=== PATIENT | female | born 1995 | race Caucasian/White ===

== ENCOUNTER → 2016-07-11 | Outpatient (CLI) | payer OTHER ==
--- NOTE | 2016-07-11 14:22 | REP ---
Clinical: Anatomical evaluation. Comparison: None. Findings: Examination demonstrates a single live intrauterine in cephalic presentation. motion is identified by technologist. Placenta is noted posteriorly and grade zero without evidence for placenta previa or abruption. Amniotic fluid volume is normal. Cervix measures a 3.5 cm in length and appears closed. No evidence for nuchal cord. Gestational age by LMP 24 weeks 3 days with GEENA is 10/28/2016 . Gestational age by current measurements 24 weeks 2 days with GEENA 10/29/2016 . FHR equals 157 beats per minute. Estimated weight 757 grams ( 61st percentile). Anatomical assessment demonstrates normal structures including cranium, choroid plexus, cavum, cerebellum/posterior fossa, facial features, lungs, four-chamber heart, diaphragm, stomach, cord insertion/three-vessel cord, kidneys/bladder, spine, and extremities. Impression: Single live intrauterine in cephalic presentation demonstrating appropriate interval growth. With the exception of the cardiac ventricular outflow tracts, anatomical assessment is complete and normal. Signed by Alex Rodney MD 07/11/2016 02:14 P
[2016-07-11 19:41] LABS: BASO % 0.3 % (0.0-1.0); EOS % 0.7 % (0.0-3.0); LARGE UNSTAINED CELL # 0.2 K/mm3 (0.0-0.4); LARGE UNSTAINED CELL % 2.3 % (0.0-4.0); MEAN CORPUSCULAR HEMOGLOBIN 30.9 pg (27.0-33.0); MEAN CORPUSCULAR HGB CONC 32.9 g/dl (32.0-36.5); MONO # 0.5 K/mm3 (0.0-0.8); MONO % 6.7 % (0.0-5.0); NEUTROPHILS # 5.4 K/mm3 (1.8-7.7); PLATELET COUNT, AUTOMATED 300 k/mm3 (150-450); RED CELL DISTRIBUTION WIDTH 12.9 % (11.5-14.5); WHITE BLOOD COUNT 7.1 K/mm3 (4.0-10.0)
[2016-07-14 10:57] LABS: CONTROL LINE INT CTR LINE PRESENT; HIV SCRN NEGATIVE (NEGATIVE); HIV SCRN1 NEGATIVE (NEGATIVE)
== END ==
LOC: M SMT 12:50
PROVIDERS: ATTEND Obstetrics & Gynecology
DX: Z36 Encounter for antenatal screening of mother (principal); Z3A.24 24 weeks gestation of pregnancy

== ENCOUNTER → 2016-10-08 | Outpatient (REF) | payer OTHER | LOC: M LAB REF 13:13 | PROVIDERS: ATTEND Advanced Practice Midwife | DX: Z34.83 Encounter for supervision of other normal pregnancy, third trimester (principal) ==

== ENCOUNTER 2016-10-26 10:52 | Inpatient (IN) | payer OTHER ==
[2016-10-26] VITALS (28 sets, daily range): BP systolic 103–177; BP diastolic 57–89
[~2016-10-26] VITALS: Ht 165.1 cm; Wt 70.0 kg
[2016-10-26] MEDS ORDERED: PRENTAB9 PO (11:05)
[2016-10-26] MEDS ORDERED: LACTATED RINGER'S 1000 ML IV STA (12:45)
[2016-10-26] MEDS ORDERED: LR 1,000 ML IV SCH (12:45)
[2016-10-26 13:27] LABS: MEAN CORPUSCULAR HEMOGLOBIN 27.6 pg (27.0-33.0); MEAN CORPUSCULAR HGB CONC 32.5 g/dl (32.0-36.5); RED CELL DISTRIBUTION WIDTH 14.7 % (11.5-14.5); WHITE BLOOD COUNT 8.2 K/mm3 (4.0-10.0)
[2016-10-26] MEDS ORDERED: OXYTOCIN DRIP 30 UNITS in APPROPRIATE DILUENT 1 EA IV SCH ×2 (13:45→21:08)
[2016-10-26] MEDS ORDERED: FENTANYL 2MCG/ML ROPIVACAINE 0.2% IN 0.9% NACL 200ML IVBAG As Ordered ONE (17:31)
[2016-10-26] MEDS ORDERED: REFRIGERATOR IV KEYS XX PRN (19:00)
[2016-10-26] MEDS ORDERED: diphenhydrAMINE INJ 50MG/ML VIAL (J1200) IV PRN (19:00)
[2016-10-26] MEDS ORDERED: EPIDURAL/PCA KEYS XX PRN (19:00)
[2016-10-26] MEDS ORDERED: LACTATED RINGER'S 1000 ML IV PRN (19:00)
[2016-10-26] MEDS ORDERED: ONDANSETRON 4MG/2ML VIAL (J2405) IV PRN ×2 (19:00→21:15)
[2016-10-26] MEDS ORDERED: EPIDURAL COMMENT XX SCH (19:00)
[2016-10-26] MEDS ORDERED: ePHEDrine SULFATE 25 MG/5 ML(5MG/ML) SYRINGE IV PRN (19:00)
[2016-10-26] MEDS ORDERED: FENTANYL/ROPIVACAINE/NACL BAG 200 ML EPIDURAL SCH (19:00)
[2016-10-26] MEDS ORDERED: NALOXONE INJ 0.4 MG/1 ML VIAL (J2310) IV PRN (19:00)
[2016-10-26] MEDS: LR 1,000 ML IV SCH (21:08)
[2016-10-26] MEDS ORDERED: RHOGAM 300 MCG (1500 IU) INJ (J2790) IM SCH (21:15)
[2016-10-26] MEDS ORDERED: ACETAMINOPHEN 500 MG TAB PO PRN (21:15)
[2016-10-26] MEDS ORDERED: MEASLES,MUMPS,RUBELLA VACCINE INJ (MMR-II) (90707) SC SCH (21:15)
[2016-10-26] MEDS ORDERED: PROMETHAZINE 25 MG TAB PO PRN (21:15)
[2016-10-26] MEDS ORDERED: DIBUCAINE 1% OINTMENT 30GM TOP PRN (21:15)
[2016-10-26] MEDS ORDERED: DOCUSATE SODIUM 100 MG CAP PO PRN (21:15)
[2016-10-27] MEDS: IBUPROFEN 800 MG TAB PO PRN ×2 (03:34→16:04)
[2016-10-27] MEDS: LR 1,000 ML IV SCH ×3 (05:08→19:31)
[2016-10-27 06:03] VITALS: BP 114/60
[2016-10-27] MEDS: PRENATAL VITAMIN TAB PO SCH (08:01)
[2016-10-27 18:00] VITALS: BP 116/65
[2016-10-28] MEDS: LR 1,000 ML IV SCH (03:39)
[2016-10-28 06:30] VITALS: BP 109/76
[2016-10-28] MEDS: PRENATAL VITAMIN TAB PO SCH (07:47)
[2016-10-28] MEDS ORDERED: IBUP-1114 PO (09:27)
[2016-10-28] MEDS ORDERED: ACET50TA PO (09:27)
[2016-10-28] MEDS ORDERED: COLA100C3 PO (09:27)
== END 2016-10-28 10:25 | disposition home or self-care (01) | DRG 775 ==
LOC: M LDO 10:52 → M LDI 11:32 → M OBS 22:19
PROVIDERS: ADMIT Obstetrics & Gynecology; ATTEND Obstetrics & Gynecology
PROC: 10E0XZZ Delivery of Products of Conception, External Approach (ICD-10-PCS; principal; 2016-10-26)
DX: O80 Encounter for full-term uncomplicated delivery (principal); Z37.0 Single live birth; Z3A.39 39 weeks gestation of pregnancy